=== PATIENT | male | born 1940 | race Caucasian/White ===

== ENCOUNTER 2024-07-26 08:43 | Day surgery (SDC) | payer MEDICARE ==
[~2024-07-26] VITALS: Ht 177.8 cm; Wt 87.4 kg
[2024-07-26] MEDS: LIDOCAINE 3.5 % 1ML OPHTH TOPICAL GEL OU ONE (06:00)
[~2024-07-26 08:43] MED LIST: ATOR40TA75 PO; ECOT81TA5 PO; OFLOXACIN 0.3 % (OCUFLOX) OPTH SOL 5ML OD ONE; PHENYLEPHRINE 10% OPHTH SOL 5ML OD PRN
[2024-07-26] MEDS: CYCLOPENTOLATE 1% OPHTH SOLN 2ML BTL OD SCH (09:38)
[2024-07-26] MEDS: TROPICAMIDE 1% OPHTH SOLN 15ML OD SCH (09:38)
[2024-07-26] MEDS: PHENYLEPHRINE 2.5% OPHTH SOL 2ML OD SCH (09:38)
[2024-07-26] MEDS ORDERED: fentaNYL 100 MCG/2 ML INJECTION As Ordered ONE (10:05)
[2024-07-26] MEDS: LIDOCAINE 1% SDV 5ML VIAL As Ordered ONE (10:29)
[2024-07-26] MEDS: CEFUROXIME 1MG/0.1ML INTRACAMERAL INJ As Ordered ONE (10:29)
[2024-07-26] MEDS: BSS IRRIG/VANCO(10MG)/TOBRA(5MG)/EPINEPH(1:1000-0.5CC)500ML BAG-ORONLY As Ordered ONE (10:30)
[2024-07-26] MEDS ORDERED: hydrALAZINE 20MG/ML 1ML VIAL As Ordered ONE (10:43)
[2024-07-26 11:09] VITALS: BP 195/94; TEMP 98; O2SAT 99
== END 2024-07-26 11:44 | disposition home or self-care (01) ==
LOC: M SDC 08:43
PROVIDERS: ATTEND Ophthalmology
DX: H25.11 Age-related nuclear cataract, right eye (principal); E78.00 Pure hypercholesterolemia, unspecified; I69.398 Other sequelae of cerebral infarction; H53.9 Unspecified visual disturbance; Z79.899 Other long term (current) drug therapy; Z79.82 Long term (current) use of aspirin; Z88.2 Allergy status to sulfonamides; Z88.8 Allergy status to other drugs, medicaments and biological substances; Z91.048 Other nonmedicinal substance allergy status; Z87.891 Personal history of nicotine dependence
CPT/HCPCS: 66984; J0360; J0697; J3010; V2632